=== PATIENT | male | born 1970 | race Hispanic/Latino ===

== ENCOUNTER 2024-03-20 21:34 | Emergency (ER) | payer SELFPAY ==
[~2024-03-20] VITALS: Ht 172.7 cm; Wt 98.9 kg
[2024-03-20 21:35] VITALS: TEMP 98.7
[2024-03-20 22:20] LABS: BASOPHILS # (AUTO) 0.07 K/uL (0.00-0.20); BASOPHILS % (AUTO) 0.9 % (0.0-5.0); EOSINOPHILS # (AUTO) 0.24 K/uL (0.00-0.70); HEMATOCRIT 43.4 % (42-54); IMMATURE GRANULOCYTE ABSOLUTE 0.05 K/uL (0-1); LYMPHOCYTES % (AUTO) 36.3 % (21.0-51.0); MEAN CORPUSCULAR HEMOGLOBIN 32.3 pg (27.0-33.0); MEAN CORPUSCULAR HGB CONC 36.6 g/dL (32.0-36.0); MEAN CORPUSCULAR VOLUME 88.2 fL (79-99); MONOCYTES # (AUTO) 0.8 K/uL (0.1-1.0); MONOCYTES % (AUTO) 9.4 % (3.0-13.0); NEUTROPHILS # (AUTO) 4.1 K/uL (1.8-7.7); NEUTROPHILS % (AUTO) 49.8 % (40.0-77.0); PLATELET COUNT (AUTO) 180 K/uL (130-400); RED BLOOD CELL COUNT(AUTO) 4.92 MIL/uL (4.50-6.20); RED CELL DISTRIBUTION WIDTH 11.9 % (11.0-15.5); WHITE BLOOD COUNT (AUTO) 8.1 K/uL (4.8-10.8)
[2024-03-20 22:27] LABS: CREATININE 1.3 mg/dL (0.5-1.3); POTASSIUM 3.6 mmol/L (3.5-5.1)
[2024-03-20] MEDS: mecliZINE HCL 25 MG TABLET PO ONE (22:28)
[2024-03-20] MEDS: LIDOCAINE HCL 2% VISCOUS 15 ML UDCUP PO ONE (22:28)
[2024-03-20] MEDS: MAG/ALUM/SIMETH 30 ML UDCUP PO ONE (22:28)
[2024-03-20] MEDS: DICYCLOMINE HCL 10 MG/5 ML ML PO ONE (22:28)
[2024-03-20] MEDS: 0.9%NACL 1000ML 2,052 ML IV ONE (22:48)
[2024-03-20] MEDS ORDERED: PANT40TA54 PO (22:54)
[2024-03-20] MEDS ORDERED: MECL-302 PO (22:54)
[2024-03-20 23:00] VITALS: BP 125/62; PULSE 91; RESP 18; O2SAT 97
== END 2024-03-20 23:08 | disposition home or self-care (01) ==
LOC: EDH 21:34
DX: H81.13 Benign paroxysmal vertigo, bilateral (principal); K21.9 Gastro-esophageal reflux disease without esophagitis; E11.22 Type 2 diabetes mellitus with diabetic chronic kidney disease; E11.65 Type 2 diabetes mellitus with hyperglycemia; N18.9 Chronic kidney disease, unspecified; K29.00 Acute gastritis without bleeding; Z79.899 Other long term (current) drug therapy; Z90.49 Acquired absence of other specified parts of digestive tract
CPT/HCPCS: 36415; 80048; 84484; 85025; 93005